=== PATIENT | male | born 1995 | race African-American/Black ===

== ENCOUNTER 2021-06-05 07:55 | Inpatient (IN) | payer OTHER ==
[~2021-06-05] VITALS: Ht 165.1 cm; Wt 55.5 kg
[2021-06-05 08:52] LABS: BASOPHIL 0.4 % (0-2); EOSINOPHIL 0.1 % (0-5); HCT 50.3 % (42.0-52.0); HGB 18.3 g/dl (13.2-18.0); LYMPHOCYTE 2.1 % (15-48); MCH 33.6 pg (25.0-31.0); MCHC 36.4 g/dL (32.0-36.0); MCV 92.5 fL (78.0-100.0); MONOCYTE 3.1 % (0-12); MPV 9.4 fL (6.0-9.5); NEUTROPHIL 93.5 % (41-80); PLT 352 K/uL (150-400); RBC 5.44 M/uL (4.70-6.00); RDW 12.9 % (11.5-14.0)
[2021-06-05 09:17] LABS: ALBUMIN 5.8 g/dL (3.4-5.0); ALKALINE PHOSHATASE 118 U/L (46-116); ALT 17 U/L (16-63); AST 18 U/L (15-37); BILIRUBIN - TOTAL 3.5 mg/dL (0.2-1.0); BUN 12 mg/dL (7-18); BUN/CREAT RATIO (CALC) 5.1 RATIO; CHLORIDE 101 mmol/L (98-107); CO2 (BICARBONATE) 20 mmol/L (21-32); CREATININE 2.36 mg/dL (0.67-1.17); GLOBULIN (CALCULATION) 3.2 g/dL; GLUCOSE 144 mg/dL (74-106); POTASSIUM 4.5 mmol/L (3.5-5.1)
[2021-06-05 09:20] LABS: LACTIC ACID 4.8 mmol/L (0.4-1.9)
[2021-06-05 09:23] LABS: CORONAVIRUS 2019 SARS-COV-2 NEGATIVE (NEGATIVE); INFLUENZA A NAA NEGATIVE (NEGATIVE)
[2021-06-05 09:53] LABS: BAND 9 % (0-10); LYMPHOCYTE(M) 1 % (15-48); MONOCYTE(M) 1 % (0-12); NEUTROPHILS(M) 89 % (41-80); NRBC 0; PLATELET ESTIMATE NORMAL; PLATELET MORPHOLOGY NORMAL; TOTAL CELL COUNT 100
[2021-06-05 11:15] LABS: BILIRUBIN 1+ mg/dL (NEGATIVE); BLOOD NEGATIVE Ery/uL (NEGATIVE); CLARITY CLEAR (CLEAR); COLOR YELLOW (YELLOW); GLUCOSE (U) NORMAL (NORMAL); LEUKOCYTES NEGATIVE Leu/uL (NEGATIVE); NITRITE NEGATIVE (NEGATIVE); PROTEIN 2+ mg/dL (NEGATIVE); SPECIFIC GRAVITY >=1.030 (1.001-1.030); UROBILINOGEN 0.2 mg/dL (0.2-1.0)
[2021-06-05 11:26] LABS: AMPHETAMINES NEGATIVE (NEGATIVE); BARBITURATES NEGATIVE (NEGATIVE); ECSTASY (MDMA) NEGATIVE (NEGATIVE); MARIJUANA (THC) NEGATIVE (NEGATIVE); METHADONE NEGATIVE (NEGATIVE); OPIATES NEGATIVE (NEGATIVE); OXYCODONE NEGATIVE (NEGATIVE)
[2021-06-05 11:51] LABS: GRANULAR CASTS TRACE; MUCOUS MODERATE
[2021-06-05 11:52] LABS: BACTERIA TRACE; URINARY RBC RARE
[2021-06-05 15:26] LABS: ACETAMINOPHEN (TYLENOL) < 2.0 ug/mL (10.0-30.0); C-REACTIVE PROTEIN <0.20 mg/dL (<=0.90); MAGNESIUM 1.6 mg/dL (1.8-2.4); VITAMIN D (25-OH) 13.5 ng/mL (30.0-100.0)
[2021-06-05 15:59] LABS: BUN/CREAT RATIO (CALC) 7.7 RATIO; CREATININE 1.69 mg/dL (0.67-1.17); POTASSIUM 3.6 mmol/L (3.5-5.1)
--- NOTE | 2021-06-05 22:57 | NUR ---
06.05.2021 @ 2200--CIWA SCORE = 2. REPOEAT SCORE AT 0800
[2021-06-06 03:48] LABS: BASOPHIL 0.5 % (0-2); EOSINOPHIL 0 % (0-5); HCT 38.4 % (42.0-52.0); HGB 13.4 g/dl (13.2-18.0); LYMPHOCYTE 6.8 % (15-48); MCH 33.3 pg (25.0-31.0); MCHC 34.9 g/dL (32.0-36.0); MCV 95.3 fL (78.0-100.0); MONOCYTE 5.6 % (0-12); MPV 9.3 fL (6.0-9.5); NEUTROPHIL 86.6 % (41-80); NRBC 0; PLT 218 K/uL (150-400); RBC 4.03 M/uL (4.70-6.00); RDW 13.5 % (11.5-14.0); WBC 8.2 K/uL (4.0-10.5)
[2021-06-06 04:08] LABS: ALBUMIN 3.1 g/dL (3.4-5.0); BILIRUBIN - DIRECT 0.2 mg/dL (0.00-0.20); BILIRUBIN - TOTAL 2.1 mg/dL (0.2-1.0); BUN/CREAT RATIO (CALC) 8.5 RATIO; CREATININE 1.17 mg/dL (0.67-1.17); GLOBULIN (CALCULATION) 2.5 g/dL; POTASSIUM 3.7 mmol/L (3.5-5.1)
[2021-06-06 04:10] LABS: TOTAL PROTEIN 5.6 g/dL (6.4-8.2)
--- NOTE | 2021-06-06 05:16 | NUR ---
06.06.2021 @ 0400 CIWA SCORE = 2. NEXT CIWA DUE AT 1200
[2021-06-06 08:11] LABS: HBSAG SCREEN Negative (Negative); HEP A AB, IGM Negative (Negative); HEP B CORE AB, IGM Negative (Negative); HEP C VIRUS AB 0.1 (0.0-0.9)
--- NOTE | 2021-06-06 18:30 | NUR ---
1200 CIWA 2 - C/O GALLARDO
[2021-06-07 05:39] LABS: BASOPHIL 0.4 % (0-2); EOSINOPHIL 4.1 % (0-5); HCT 36.6 % (42.0-52.0); HGB 12.8 g/dl (13.2-18.0); LYMPHOCYTE 11.5 % (15-48); MCH 33.2 pg (25.0-31.0); MCV 95.1 fL (78.0-100.0); MONOCYTE 10.2 % (0-12); MPV 9.2 fL (6.0-9.5); NEUTROPHIL 73.2 % (41-80); NRBC 0; PLT 205 K/uL (150-400); RBC 3.85 M/uL (4.70-6.00); RDW 13.2 % (11.5-14.0); WBC 7.1 K/uL (4.0-10.5)
[2021-06-07 05:51] LABS: BUN/CREAT RATIO (CALC) 6.7 RATIO; CREATININE 0.9 mg/dL (0.67-1.17); MAGNESIUM 1.7 mg/dL (1.8-2.4); PHOSPHORUS 2.9 mg/dL (2.6-4.7); POTASSIUM 3.7 mmol/L (3.5-5.1)
[2021-06-08 06:35] LABS: ALBUMIN 3.5 g/dL (3.4-5.0); BUN/CREAT RATIO (CALC) 7.1 RATIO; CREATININE 0.99 mg/dL (0.67-1.17); GLOBULIN (CALCULATION) 3.1 g/dL; MAGNESIUM 1.7 mg/dL (1.8-2.4); POTASSIUM 4.2 mmol/L (3.5-5.1); TOTAL PROTEIN 6.6 g/dL (6.4-8.2)
[2021-06-08 07:50] LABS: HCT 42.6 % (42.0-52.0); HGB 14.8 g/dl (13.2-18.0); MCH 33.4 pg (25.0-31.0); MCHC 34.7 g/dL (32.0-36.0); MCV 96.2 fL (78.0-100.0); RBC 4.43 M/uL (4.70-6.00); RDW 13.2 % (11.5-14.0); WBC 7.9 K/uL (4.0-10.5)
[2021-06-08] MEDS ORDERED: LEVAQUIN750 MG PO (08:48)
[2021-06-08] MEDS ORDERED: IMODIUM2 MG PO (08:48)
[2021-06-08] MEDS ORDERED: PANTOPRAZOLE SO40 MG PO (08:48)
[2021-06-08] MEDS ORDERED: ONDANSETRON4 MG/2 M2 PO (08:48)
[2021-06-08] MEDS ORDERED: METRONIDAZOLE500 MG PO (08:48)
[2021-06-08] MEDS ORDERED: TAB-A-VITE TA400 MC1 PO (08:48)
[2021-06-08] MEDS ORDERED: DRISDOL50000 UNIT PO (09:47)
--- NOTE | 2021-06-08 16:01 | NUR ---
06/08/21 A referral was made to the [facility] to arrange for PCP and GI providers.
[2021-06-10 17:10] LABS: ADENOVIRUS F 40/41 Not Detected (Not Detected); ASTROVIRUS Not Detected (Not Detected); C DIFFICILE TOXIN A/B Not Detected (Not Detected); CAMPYLOBACTER Not Detected (Not Detected); CRYPTOSPORIDIUM Not Detected (Not Detected); CYCLOSPORA CAYETANENSIS Not Detected (Not Detected); ENTAMOEBA HISTOLYTICA Not Detected (Not Detected); ENTEROAGGREGATIVE E COLI Not Detected (Not Detected); ENTEROPATHOGENIC E COLI Not Detected (Not Detected); ENTEROTOXIGENIC E COLI Not Detected (Not Detected); GIARDIA LAMBLIA Not Detected (Not Detected); NOROVIRUS GI/GII Detected (Not Detected); PLESIOMONAS SHIGELLOIDES Not Detected (Not Detected); ROTAVIRUS A Not Detected (Not Detected); SALMONELLA Not Detected (Not Detected); SAPOVIRUS Not Detected (Not Detected); SHIGA-TOXIN-PRODUCING E COLI Not Detected (Not Detected); SHIGELLA/ENTEROINVASIVE E COLI Not Detected (Not Detected); VIBRIO Not Detected (Not Detected); VIBRIO CHOLERAE Not Detected (Not Detected); YERSINIA ENTEROCOLITICA Not Detected (Not Detected)
== END 2021-06-08 13:50 | disposition home or self-care (01) | DRG 872 ==
LOC: FER 07:55 → FTCU 11:30
PROVIDERS: Emergency Medicine; Nurse Practitioner Acute Care; ADMIT Internal Medicine
PROC: 3E03329 Introduction of Other Anti-infective into Peripheral Vein, Percutaneous Approach (ICD-10-PCS; principal; 2021-06-05)
PROC: HZ2ZZZZ Detoxification Services for Substance Abuse Treatment (ICD-10-PCS; 2021-06-05)
DX: A41.9 Sepsis, unspecified organism (principal); E87.2 Acidosis; A09 Infectious gastroenteritis and colitis, unspecified; N17.9 Acute kidney failure, unspecified; K62.5 Hemorrhage of anus and rectum; R65.20 Severe sepsis without septic shock; Z20.822 Contact with and (suspected) exposure to COVID-19; K29.20 Alcoholic gastritis without bleeding; F10.20 Alcohol dependence, uncomplicated; K52.9 Noninfective gastroenteritis and colitis, unspecified; R73.9 Hyperglycemia, unspecified; F17.210 Nicotine dependence, cigarettes, uncomplicated; M54.50 Low back pain, unspecified; E86.0 Dehydration; E55.9 Vitamin D deficiency, unspecified; Y90.0 Blood alcohol level of less than 20 mg/100 ml; M85.052 Fibrous dysplasia (monostotic), left thigh; Z88.0 Allergy status to penicillin; Z88.1 Allergy status to other antibiotic agents; Z91.030 Bee allergy status
CPT/HCPCS: 36415; 36600; 71045; 76705; 80048; 80053; 80074; 80076; 80305; 81001; 82009; 82270; 82306; 82652; 82803; 83036; 83516; 83605; 83735; 83970; 83993; 84100; 84145; 84439; 84443; 85025; 86140; 87040; 87045; 87046; 87088; 87449; 93005; G0480; J0610; J1650; J1956; J2405; J2543; J3411; J3475; J7030; J7050; J7120; U0002